=== PATIENT | female | born 1955 | race Caucasian/White ===

== ENCOUNTER → 2016-11-28 | Outpatient (CLI) | payer OTHER ==
--- NOTE | 2016-11-28 19:40 | DX ---
DEXA Bone Mineral Densitometry Indication: 61-year-old postmenopausal woman with personal history of low bone mineral density. Foll ow up. Comparison: June 05, 2014. Technique: Bone Mineral Densitometry (BMD) by Dual Energy X-Ray Absorptiometry (DEXA) was performed utilizing the Drywave scanner. The lumbar spine was evaluated in the AP projection. The bilate ral hips and right forearm were evaluated in the AP projection. Vertebral fracture assessment was als o performed. AP Lumbar Spine: The L1, L2, L3 and L4 vertebral bodies were evaluated. BMD: 1.026 gm/cm2 T-score: -1.4 SD Z-score: -0.4 SD No change AP Left Hip: Total BMD: 0.852 gm/cm2 T-score: -1.2 SD Z-score: -0.5 SD No change AP Right Hip: Neck BMD: 0.808 gm/cm2 T-score: -1.7 SD Z-score: -0.6 SD No change AP right Forearm, 10/21: BMD: 0.926 gm/cm2 T-score: 0.6 SD Z-score: 1.4 SD No change Vertebral Fracture Assessment: No significant fracture deformity. No prevertebral aortic calcificat ion, significant marginal bone spurring, facet arthrosis, or intrinsic vertebral body sclerosis that would affect the accuracy of the lumbar spine BMD measurement. Conclusion: Considering the lowest measured site (right hip), the patient's low bone mineral density (osteopenia) has not significantly changed. The ten year risk for any major osteoporotic fracture i s 8.5% and for a hip fracture is 0.8%. Any bone loss in this patient is probably related to aging or estrogen deficiency. Recommendation: To prevent osteoporosis and to promote bone density, consider the following recommen dations: 1. Pursue a regular regimen of weightbearing and muscle-strengthening exercises in order to reduce t he risk of falls and fracture (as tolerated by the patient's general medical condition). 2. Ensure that total daily dietary calcium intake is maximized. 3. Check serum hydroxy vitamin D3 (normal >30ng/ml). 4. Ensure daily intake of vitamin D is 800 international units. 5. Consider follow up DEXA scan in two years to assess the rate of bone loss in this patient. 6. If not recently assessed, recommend excluding common secondary causes of bone loss. Laboratory ev aluation might include CBC, TSH, calcium, phosphorous, albumin, creatinine, alkaline phosphatase, PTH , serum, electrophoresis (SPEP or UPEP), antitissue transglutaminase antibody levels (celiac disease) , and hydroxy vitamin D3, as well as a 24-hour urine calcium.
== END ==
LOC: FIMAGING 14:04
PROVIDERS: ATTEND Internal Medicine
DX: M85.80 Other specified disorders of bone density and structure, unspecified site (principal); Z78.0 Asymptomatic menopausal state

== ENCOUNTER → 2017-10-22 | Outpatient (CLI) | payer OTHER | LOC: BMCIMAGING 12:50 | PROVIDERS: ATTEND Internal Medicine | DX: M79.604 Pain in right leg (principal) ==